=== PATIENT | female | born 1990 | race American Indian/Alaskan Native ===

== ENCOUNTER 2017-01-26 11:41 | Emergency (ER) | payer BC ==
[2017-01-26] MEDS ORDERED: MOTRIN PO ONE (12:40)
[2017-01-26] MEDS ORDERED: DECADRON IM ONE (12:40)
--- NOTE | 2017-01-26 12:54 | Emergency Department Report ---
Upper Extremity - HPI Chief Complaint: Extremity Injury, Upper Stated Complaint: INSECT BITE Upper Extremity: Left Shoulder Occurred When: 2 Days Severity: moderate Symptoms: Yes Swelling, No Pain with Movement, No Deformity, No Limited Range of Movement, No Numbness, No Weakness, No Bruising/Ecchymosis, No Laceration or Abrasion Other History: 26-year-old -[place] female comes in for complaint of left upper arm swollen and red and warm. Patient denies any trauma denies. Patient reports that the rash is red and swollen and itchy. Pain is worse when he touches her arm which also causes it to its more. ED Review of Systems ROS: Stated complaint: INSECT BITE Other details as noted in HPI Constitutional: denies: chills, fever Eyes: as per HPI ENT: denies: ear pain, throat pain Respiratory: denies: cough, shortness of breath, wheezing Cardiovascular: denies: chest pain, palpitations Endocrine: no symptoms reported Gastrointestinal: as per HPI Genitourinary: denies: urgency, dysuria, discharge Musculoskeletal: denies: back pain, joint swelling, arthralgia Skin: change in color, pruritus Neurological: denies: headache, weakness, paresthesias Psychiatric: denies: anxiety, depression Hematological/Lymphatic: denies: easy bleeding, easy bruising ED Past Medical Hx - Past Medical History Previous Medical History?: No - Surgical History Past Surgical History?: Yes Additional Surgical History: FOOT SURGERY - Social History Smoking Status: Current Every Day Smoker Substance Use Type: Alcohol - Medications Home Medications: Home Medications Medication Instructions Recorded Confirmed Last Taken Type Cetirizine HCl [ZyrTEC] 10 mg PO QDAY 30 Days #30 capsule 01/26/17 Unknown Rx predniSONE [Deltasone] 10 mg PO QDAY #5 tab 01/26/17 Unknown Rx Upper Extremity Exam - Exam General: Vital signs noted. No distress. Alert and acting appropriately. Head and Torso: No HEENT Abnormality, No Neck Tenderness, No Chest/Lungs Abnormality, No Abdominal Tenderness, No Back Tenderness Shoulder Exam: No Shoulder Tenderness (swelling and itchiness as well as redness.), No Clavicle Tenderness, No Normal Range of Motion in Shoulder, No Shoulder Deformity, No AC Joint Tenderness Arm Exam: No Arm/Humerus Tenderness Elbow: No Elbow Tenderness, No Normal Range of Motion in Elbow, No Elbow Deformity Forearm: No Forearm Tenderness, No Forearm Deformity, No Pain with Pronation, No Pain with Supination ED Course Vital Signs 01/26/17 11:45 Temperature 98.9 F Pulse Rate 108 H Respiratory 18 Rate Blood Pressure 120/73 O2 Sat by Pulse 100 Oximetry Critical care attestation.: If time is entered above; I have spent that time in minutes in the direct care of this critically ill patient, excluding procedure time. ED Disposition Clinical Impression: Insect bite Qualifiers: Encounter type: initial encounter Qualified Code(s): W57.XXXA - Bitten or stung by nonvenomous insect and other nonvenomous arthropods, initial encounter Disposition: DC-01 TO HOME OR SELFCARE Is pt being admited?: No Does the pt Need Aspirin: No Condition: Stable Instructions: Urticaria (ED), Insect Bite or Sting (ED) Additional Instructions: Recommend to take medication as prescribed. Follow up with PCP in 3-5 days is symptoms persist or gets worse. Prescriptions: Cetirizine HCl [ZyrTEC] 10 mg PO QDAY 30 Days #30 capsule predniSONE [Deltasone] 10 mg PO QDAY #5 tab Referrals: PRIMARY CARE, [Primary Care Provider] - 3-5 Days Forms: Work/School Release Form(ED)
[2017-01-26 14:07] VITALS: BP 123/84
== END 2017-01-26 14:08 | disposition home or self-care (01) ==
LOC: ED 11:41
DX: M79.89 Other specified soft tissue disorders (principal); R21 Rash and other nonspecific skin eruption; L29.9 Pruritus, unspecified
CPT/HCPCS: 96372; 99282; J1100